=== PATIENT | female | born 1990 | race Two or more races ===

== ENCOUNTER 2019-03-27 17:52 | Emergency (ER) | payer OTHER ==
[2019-03-27 18:04] VITALS: BP 121/62
[2019-03-27] MEDS ORDERED: KETOROLAC TROMETHAMINE 60 MG/2 ML SDV IM ONE (18:13)
--- NOTE | 2019-03-27 18:13 | ER Document Report ---
ED Medical Screen (RME) - General Chief Complaint: Knee Pain Stated Complaint: LEFT KNEE PAIN/SWELLING Time Seen by Provider: 03/27/19 18:07 Mode of Arrival: Ambulatory Information source: Patient Notes: 28-year-old female presented to ED for complaint of left knee pain since a week ago Thursday. She states she was in a rugby game and injured her knee. She states that the time she was not able to do full range of motion but after while she was able to walk on it. [facility] and they told her there was no ligament injuries gave her a brace and crutches and sent her home. She states her range of motion has been limited since then she is been using her medicine but is not getting any better. She states she has not been seen by anybody since then and she has not been referred to orthopedics. She states that the time of her visit at the [facility] they did not do an x-ray. I have greeted and performed a rapid initial assessment of this patient. A comprehensive ED assessment and evaluation of the patient, analysis of test results and completion of medical decision making process will be conducted by an additional ED providers. - Related Data Allergies/Adverse Reactions: No Known Allergies Allergy (Verified 03/27/19 18:04) Physical Exam - Vital signs Vitals: Temp Pulse Resp BP Pulse Ox 98.1 F 68 16 121/62 98 03/27/19 18:02 03/27/19 18:02 03/27/19 18:02 03/27/19 18:02 03/27/19 18:02 Course - Vital Signs Vital signs: Temp Pulse Resp BP Pulse Ox 98.1 F 68 16 121/62 98 03/27/19 18:02 03/27/19 18:02 03/27/19 18:02 03/27/19 18:02 03/27/19 18:02
--- NOTE | 2019-03-27 18:49 | RADIOLOGY REPORT (SQ) ---
EXAM DESCRIPTION: KNEE LEFT 4 VIEW COMPLETED DATE/TIME: 03/27/2019 6:35 pm REASON FOR STUDY: pain knee COMPARISON: None. NUMBER OF VIEWS: Four views. TECHNIQUE: AP, lateral, and both oblique radiographic images acquired of the left knee. LIMITATIONS: None. FINDINGS: MINERALIZATION: Normal. BONES: No acute fracture or dislocation. Hardware in the femur and tibia. No worrisome bone lesions . JOINT: No effusion. SOFT TISSUES: No soft tissue swelling. No radio-opaque foreign body. OTHER: No other significant finding. IMPRESSION: SURGICAL HARDWARE. NO RADIOGRAPHIC EVIDENCE OF ACUTE INJURY. TECHNICAL DOCUMENTATION: JOB ID: [id number] [email or web address]- All Rights Reserved Reading location - IP/workstation name: [email or web address]
--- NOTE | 2019-03-27 18:58 | ER Document Report ---
HPI - HPI Patient complains to provider of: Left knee pain Time Seen by Provider: 03/27/19 18:07 Onset: Last week Onset/Duration: Sudden, Persistent Quality of pain: Achy Pain Level: 4 Context: This 28-year-old female presents emergency department with complaints of left knee pain. 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 She did go to to [facility] for evaluation. No x-rays were done but she was placed in a brace and given crutches. She was also instructed to take Motrin for pain. Patient still complains of pain mostly anterior behind her knee. Reports history of ACL injury and surgery. Patient has not followed back up with her BAS or orthopedics. No other complaints of fever vomiting diarrhea. Associated Symptoms: None Exacerbated by: Walking Relieved by: Denies Similar symptoms previously: Yes Recently seen / treated by doctor: Yes - REPRODUCTIVE LMP: 2018 (IUD) Reproductive: DENIES: : Past Medical History - General Information source: Patient Last Menstrual Period: iud - Social History Smoking Status: Never Smoker Chew tobacco use (# tins/day): No Frequency of alcohol use: None Drug Abuse: None Occupation: active duty Lives with: Family Family History: None Patient has suicidal ideation: No Patient has homicidal ideation: No Traumatic Medical History: Reports: Other - acl Past Surgical History: Reports: Hx Orthopedic Surgery Vertical Provider Document - CONSTITUTIONAL Agree With Documented VS: Yes Exam Limitations: No Limitations General Appearance: WD/WN, No Apparent Distress - INFECTION CONTROL TRAVEL OUTSIDE OF THE [place] IN LAST 30 DAYS: No - HEENT HEENT: Atraumatic, Normocephalic - NECK Neck: Supple - RESPIRATORY Respiratory: No Respiratory Distress - CARDIOVASCULAR Cardiovascular: Regular Rate - MUSCULOSKELETAL/EXTREMETIES Musculoskeletal/Extremeties: MAEW, FROM, Non-Tender - No obvious deformity to the left knee no erythema no swelling no warmth flexes and extends knee without problems. Denies pain with palpation - NEURO Level of Consciousness: Awake, Alert, Appropriate Motor/Sensory: No Motor Deficit - DERM Integumentary: Warm, Dry Course - Re-evaluation Re-evalutation: 03/27/19 19:04 Knee X-Ray 03/27/19 18:14 IMPRESSION: SURGICAL HARDWARE. NO RADIOGRAPHIC EVIDENCE OF ACUTE INJURY. 03/27/19 19:11 Knee x-rays negative for acute injury. Patient was instructed on this. Patient was also instructed to follow-up with your BAS for referral to orthopedics as indicated. She verbalized understanding to all instructions. - Vital Signs Vital signs: Temp Pulse Resp BP Pulse Ox 98.1 F 68 16 121/62 98 03/27/19 18:02 03/27/19 18:02 03/27/19 18:02 03/27/19 18:02 03/27/19 18:02 - Diagnostic Test Radiology reviewed: Image reviewed, Reports reviewed Discharge - Discharge Clinical Impression: Left knee pain Condition: Stable Disposition: HOME, SELF-CARE Instructions: Ice & Elevation (COUNTS INCLUDE 234 BEDS AT THE [facility]) Additional Instructions: *You have been evaluated for left knee pain Your x-ray was negative for any acute injury *Continue to use her brace and crutches as directed *Rest/Ice/Elevate your knee *Follow up with your BAS for a referral to orthopedics *Take ibuprofen as indicated for pain *Return to ED for worsening condition, changes, needs
== END 2019-03-27 19:07 | disposition home or self-care (01) ==
LOC: ER 17:52
DX: M25.562 Pain in left knee (principal)
CPT/HCPCS: 73564; J1885; 96372; 99283